=== PATIENT | female | born 1980 | race Caucasian/White ===

== ENCOUNTER 2017-07-04 08:47 | Emergency (ER) | payer BC ==
[2017-07-04 08:55] VITALS: BP 154/91
[2017-07-04] MEDS ORDERED: ACETAMINOPHEN 500 MG TABLET PO ONE (09:15)
[2017-07-04 09:36] LABS: INFLUENZA A PATIENT NEGATIVE (NEGATIVE); INFLUENZA B PATIENT POSITIVE (NEGATIVE)
[2017-07-04] MEDS ORDERED: OSEL75CA PO (10:02)
[2017-07-04] MEDS ORDERED: FLUT12AE IH (10:02)
--- NOTE | 2017-07-04 10:04 | PHYS DOC ---
Past History Past Medical History: No Pertinent History Past Surgical History: No Surgical History Alcohol Use: None Drug Use: None Adult General Chief Complaint Chief Complaint: FLU SYMPTOM HPI HPI Patient is a 36 year old F who presents with flulike symptoms. She describes fever body aches and chills starting yesterday afternoon. She has associated fever and cough. She has no other associated symptoms. She feels that her cough is worse with deep inspiration. She feels that her symptoms are improved with anti-inflammatory medications. She has no other exacerbating or relieving factors. Review of Systems Review of Systems Constitutional: Negative except history of present illness Eyes: Denies change in visual acuity, redness, or eye pain [] HENT: Denies nasal congestion or sore throat [] Respiratory: Negative except history of present illness Cardiovascular: No additional information not addressed in HPI [] GI: Denies abdominal pain, nausea, vomiting, bloody stools or diarrhea [] : Denies dysuria or hematuria [] Musculoskeletal: Denies back pain or joint pain [] Integument: Denies rash or skin lesions [] Neurologic: Denies headache, focal weakness or sensory changes [] Endocrine: Denies polyuria or polydipsia [] All other systems were reviewed and found to be within normal limits, except as documented in this note. Family History Family History No pertinent family medical history was reported Current Medications Current Medications Current Medications Medications (Trade) Dose Ordered Sig/Rody Start Time Stop Time Status Last Admin Dose Admin Acetaminophen (Tylenol) 1,000 mg 1X ONCE 07/04/17 09:15 07/04/17 09:38 DC 07/04/17 09:35 1,000 MG Ondansetron HCl (Zofran Odt) 4 mg 1X ONCE 07/04/17 09:45 07/04/17 09:46 UNV Allergies Allergies Allergies Coded Allergies Type Severity Reaction Last Updated Verified Sulfa (Sulfonamide Antibiotics) Allergy Unknown 07/04/17 Yes Physical Exam Physical Exam Constitutional: Well developed, well nourished, no acute distress, non-toxic appearance. [] Mildly ill-appearing HENT: Normocephalic, atraumatic, Eyes: EOMI, conjunctiva normal, no discharge. [] Neck: Normal range of motion, no tenderness, supple, no stridor. [] Cardiovascular:Heart rate regular rhythm, Lungs & Thorax: Bilateral breath sounds clear to auscultation [] cough noted Abdomen: Bowel sounds normal, soft, no tenderness, no masses, no pulsatile masses. [] Skin: Warm, dry, no erythema, no rash. [] Back: No tenderness, no CVA tenderness. [] Extremities: No tenderness, no cyanosis, no clubbing, ROM intact, no edema. [] Neurologic: Alert and oriented X 3, normal motor function, normal sensory function, no focal deficits noted. [] Psychologic: Affect normal, judgement normal, mood normal. [] Current Patient Data Vital Signs Vital Signs Date Time Temp Pulse Resp B/P (MAP) Pulse Ox O2 Delivery O2 Flow Rate FiO2 07/04/17 08:55 101.1 102 16 99 Room Air Lab Results Laboratory Tests Test 07/04/17 09:03 Influenza Type A (Rapid) Negative (NEGATIVE) Influenza Type B (Rapid) Positive (NEGATIVE) EKG EKG [] Radiology/Procedures Radiology/Procedures [] Course & Med Decision Making Course & Med Decision Making Pertinent Labs and Imaging studies reviewed. (See chart for details) [] Dragon Disclaimer Dragon Disclaimer This electronic medical record was generated, in whole or in part, using a voice recognition dictation system. Departure Departure: Impression: Primary Impression: Influenza B Additional Impression: Bronchitis Disposition: HOME, SELF-CARE Condition: STABLE Referrals: NON,STAFF (PCP) Patient Instructions: Influenza, Adult Additional Instructions: Lissette was seen in the emergency department for flulike symptoms. No emergency medical condition was found on history or physical exam. She was found to have influenza B and symptoms of bronchitis. She was started on Tamiflu and given a prescription for an inhaled steroid. She was advised follow-up with her primary care doctor as needed for further management. Scripts Oseltamivir Phosphate (TAMIFLU) 75 Mg Capsule 1 CAP PO BID for 5 Days, #10 CAP Prov: DANNY CAI MD 07/04/17 Fluticasone Propionate (FLOVENT 110MCG HFA) 12 Gm Aer.w.adap 2 PUFF IH BID for 7 Days, #1 INHALER 2 Refills Prov: DANNY CAI MD 07/04/17 Problem Qualifiers DANNY CAI MD Jul 04, 2017 10:04
[2017-07-04] MEDS ORDERED: OSELTAMIVIR 75 MG CAPSULE PO ONE (10:30)
[2017-07-04] MEDS ORDERED: ONDANSETRON ODT 4 MG TAB.RAPDIS PO ONE (10:30)
[2017-07-04] MEDS ORDERED: HYDROcodon/IBUPROFEN 7.5/200MG 1 TAB TABLET PO ONE (10:30)
== END 2017-07-04 10:15 | disposition home or self-care (01) ==
LOC: ER 08:47
DX: J10.1 Influenza due to other identified influenza virus with other respiratory manifestations (principal); J40 Bronchitis, not specified as acute or chronic; Z88.2 Allergy status to sulfonamides
CPT/HCPCS: 87804; 99284; Q0162

== ENCOUNTER 2021-03-02 01:21 | Observation (INO) | payer BC ==
[~2021-03-02] VITALS: Ht 175.3 cm; Wt 133.8 kg
[~2021-03-02 01:21] MED LIST: FLUT12AE IH; OSEL75CA PO
[2021-03-02] MEDS ORDERED: FAMOTIDINE 20 MG/2 ML VIAL IVP ONE (01:45)
[2021-03-02] MEDS ORDERED: ONDANSETRON PF 4 MG/2 ML VIAL. IVP ONE ×2 (01:45→06:15)
[2021-03-02] MEDS ORDERED: IV NORMAL SALINE 1,000ML 1,000 ML IV ONE ×2 (01:45→05:15)
--- NOTE | 2021-03-02 01:51 | PHYS DOC ---
Past History Past Medical History: No Pertinent History Past Surgical History: No Surgical History Alcohol Use: None Drug Use: None Adult General Chief Complaint Chief Complaint: Bodyache and back pain [facility] HPI Patient presents with complaint of back pain for the last 3 days. She has history of back pain but it has been exacerbated. She has been using Tylenol on and off. She in addition has a body ache and joint pain. She has had cold symptoms and chest congestion for 1 week. She then developed significant mid abdomen pain over the last 24 hours. She has had multiple episodes of vomiting and is still nauseated. She denies any fever or dysuria. Denies any diarrhea. Denies chest pain or shortness of breath. She has not been vaccinated for Covid though see has not had any known exposure. The back pain is located more toward the left flank and feels bit different from her normal back pain. Denies any focal weakness or numbness. Review of Systems Review of Systems Constitutional: Denies fever or chills. Complains of being fatigued. Eyes: Denies change in visual acuity, redness, or eye pain HENT: She has had recent nasal and chest congestion but denies any sore throat. Respiratory: Denies cough or shortness of breath Cardiovascular: No additional information not addressed in HPI GI: Denies abdominal pain, nausea, vomiting, bloody stools or diarrhea : Denies dysuria or hematuria Musculoskeletal: Generally has back pain but now she also complains of joint pain. Integument: Denies rash or skin lesions Neurologic: Denies headache, focal weakness or sensory changes Endocrine: Denies polyuria or polydipsia All other systems were reviewed and found to be within normal limits, except as documented in this note. Current Medications Current Medications Current Medications Medications (Trade) Dose Ordered Sig/Rody Start Time Stop Time Status Last Admin Dose Admin Famotidine (Pepcid Vial) 20 mg 1X ONCE 03/02/21 01:45 03/02/21 01:46 Info (Do NOT chart on this entry -- for MONITORING) 1 each PRN DAILY PRN 03/02/21 02:00 03/04/21 01:59 Iohexol (Omnipaque 300 Mg/ml) 75 ml 1X ONCE 03/02/21 02:00 03/02/21 02:01 UNV Ondansetron HCl (Zofran) 4 mg 1X ONCE 03/02/21 01:45 03/02/21 01:46 Sodium Chloride 1,000 ml @ 1,000 mls/hr 1X ONCE 03/02/21 01:45 03/02/21 02:44 UNV Allergies Allergies Allergies Coded Allergies Type Severity Reaction Last Updated Verified Sulfa (Sulfonamide Antibiotics) Allergy Unknown 07/04/17 Yes Physical Exam Physical Exam Constitutional: Well developed, well nourished, no acute distress, non-toxic appearance. HENT: Normocephalic, atraumatic, bilateral external ears normal, oropharynx moist, no oral exudates, nose normal. Eyes: PERRLA, EOMI, conjunctiva normal, no discharge. Neck: Normal range of motion, no tenderness Cardiovascular:Heart rate regular rhythm, no murmur Lungs & Thorax: Bilateral breath sounds clear to auscultation Abdomen: Bowel sounds normal, soft, with mild to moderate mid abdominal tenderness without any focality to any upper or lower quadrants. She in addition has left flank tenderness. Skin: Warm, dry, no erythema, no rash. Back: No tenderness, no CVA tenderness. Extremities: No tenderness, no cyanosis, no clubbing, ROM intact, no edema. There are no joints with swelling or erythema. Neurologic: Alert and oriented X 3, normal motor function, normal sensory function, no focal deficits noted. Psychologic: Affect normal, judgement normal, mood normal. Current Patient Data Lab Results Laboratory Tests Test 03/02/21 01:53 03/02/21 02:12 03/02/21 02:55 Urine Collection Type Unknown Urine Color Yellow Urine Clarity Clear Urine pH 7.0 Urine Specific [place] 1.025 Urine Protein 30 mg/dl Urine Glucose (UA) Neg mg/dL Urine Ketones (Stick) Neg mg/dL Urine Blood Neg Urine Nitrite Neg Urine Bilirubin Neg Urine Urobilinogen Dipstick 0.2 mg/dL Urine Leukocyte Esterase Neg Urine RBC 0 /HPF Urine WBC 1-4 /HPF Urine Squamous Epithelial Cells Few /LPF Urine Bacteria Few /HPF Bedside Urine HCG, Qualitative hcg negative White Blood Count 5.9 x10^3/uL Red Blood Count 4.45 x10^6/uL Hemoglobin 13.0 g/dL Hematocrit 38.7 % Mean Corpuscular Volume 87 fL Mean Corpuscular Hemoglobin 29 pg Mean Corpuscular Hemoglobin Concent 34 g/dL Red Cell Distribution Width 14.2 % Platelet Count 147 x10^3/uL Neutrophils (%) (Auto) 93 % Lymphocytes (%) (Auto) 4 % Monocytes (%) (Auto) 3 % Eosinophils (%) (Auto) 0 % Basophils (%) (Auto) 0 % Neutrophils # (Auto) 5.5 x10^3uL Lymphocytes # (Auto) 0.2 x10^3/uL Monocytes # (Auto) 0.2 x10^3/uL Eosinophils # (Auto) 0.0 x10^3/uL Basophils # (Auto) 0.0 x10^3/uL Sodium Level 133 mmol/L Potassium Level 3.5 mmol/L Chloride Level 101 mmol/L Carbon Dioxide Level 25 mmol/L Anion Gap 7 Blood Urea Nitrogen 10 mg/dL Creatinine 0.7 mg/dL Estimated GFR (Cockcroft-Gault) 91.8 BUN/Creatinine Ratio 14 Glucose Level 104 mg/dL Calcium Level 7.8 mg/dL Total Bilirubin 0.3 mg/dL Aspartate Amino Transf (AST/SGOT) 25 U/L Alanine Aminotransferase (ALT/SGPT) 41 U/L Alkaline Phosphatase 58 U/L Total Protein 6.7 g/dL Albumin 3.2 g/dL Albumin/Globulin Ratio 0.9 Current Medications Medications (Trade) Dose Ordered Sig/Rody Route PRN Reason Start Time Stop Time Status Last Admin Dose Admin Ondansetron HCl (Zofran) 4 mg 1X ONCE IVP 03/02/21 01:45 03/02/21 01:48 DC 03/02/21 02:21 Famotidine (Pepcid Vial) 20 mg 1X ONCE IVP 03/02/21 01:45 03/02/21 01:48 DC 03/02/21 02:20 Sodium Chloride 1,000 ml @ 1,000 mls/hr 1X ONCE IV 03/02/21 01:45 03/02/21 02:44 DC 03/02/21 02:20 Iohexol (Omnipaque 300 Mg/ml) 75 ml 1X ONCE IV 03/02/21 02:00 03/02/21 02:01 DC 03/02/21 02:34 Info (Do NOT chart on this entry -- for MONITORING) 1 each PRN DAILY PRN MC SEE COMMENTS 03/02/21 02:00 03/04/21 01:59 Morphine Sulfate (Morphine 2mg Syringe) 2 mg 1X ONCE IV 10/15/21 02:30 03/02/21 02:31 DC 03/02/21 02:29 Morphine Sulfate (Morphine 2mg Syringe) 2 mg STK-MED ONCE .ROUTE 03/02/21 02:25 03/02/21 02:26 DC Prochlorperazine Edisylate (Compazine) 10 mg 1X ONCE IV 03/02/21 03:15 03/02/21 03:16 DC 03/02/21 03:21 Prochlorperazine Edisylate (Compazine) 10 mg STK-MED ONCE .ROUTE 03/02/21 03:10 03/02/21 03:11 DC EKG EKG [] Radiology/Procedures Radiology/Procedures Chest x-ray per radiology interpretation showed bibasilar mild ill-defined opacities that can likely be atelectasis or infiltrate including viral pneumonia. CT scan of the abdomen and pelvis impressions were as follow: 1. Patchy bilateral lower lobe opacities, may represent infectious or inflammatory process. Recommend follow-up to ensure resolution. 2. Uterine lesions, most likely fibroids. 3. Mild splenomegaly. Heart Score C/O Chest Pain: No Risk Factors: Risk Factors: DM, Current or recent (<one month) smoker, HTN, HLP, family history of CAD, obesity. Risk Scores: Risk Factors: DM, Current or recent (<one month) smoker, HTN, HLP, family history of CAD, obesity. Course & Med Decision Making Course & Med Decision Making Pertinent Labs and Imaging studies reviewed. (See chart for details) Patient presented with complaint of body ache, nausea, vomiting, abdominal pain and not being able to keep anything down for the last 24 hours. She is IV started and normal saline 1 L bolus has been ordered. In addition Zofran intravenously and Pepcid intravenously has been ordered. She is awaiting CT scan of the abdomen and pelvis as well as chest x-ray and laboratory studies. 3:40 AM: As stated above CT and the chest x-rays only show bibasilar atelectasis versus potential viral infiltrate. Her CBC and comprehensive metabolic profiles are fairly unremarkable. Her urinalysis is also unremarkable. Patient has received 2 dosages of morphine sulfate intravenously and in addition to the Zofran, she has not been given Compazine 10 mg intravenously as well. She is beginning to feel much better and continues remains afebrile and hemodynamically stable with normal blood pressure and pulse as well as pulse oximetry. Due to the generalized body ache and chest congestion, I tested for flu and influenza a and B both were negative. 4:45 AM: I have discussed with patient all of the light laboratory findings, provided patient with Zithromax 500 mg dose in the emergency department for possible atypical pneumonia and prescribed her Zithromax as well as Zofran for home use. Patient is going to call her physician in the morning and then follow-up accordingly. Dragon Disclaimer Dragon Disclaimer This electronic medical record was generated, in whole or in part, using a voice recognition dictation system. Departure Departure: Impression: Primary Impression: Atypical pneumonia Additional Impressions: Person under investigation for COVID-19 Abdominal pain Disposition: HOME / SELF CARE / HOMELESS Condition: IMPROVED Referrals: NAPOLEON ASH MD (PCP) call your doctor in the morning. If you get worse, come back to ER Patient Instructions: Abdominal Pain, Pneumonia, Adult Scripts Ondansetron Hcl (ZOFRAN) 4 Mg Tablet 4 MG PO 2-3XD for nausea, #20 TAB Prov: MARY GRACE GODOY MD 03/02/21 Azithromycin (AZITHROMYCIN TABLET) 250 Mg Tablet 250 MG PO DAILY for ANTI-BIOTIC for 4 Days, #4 TAB 0 Refills Prov: MARY GRACE GODOY MD 03/02/21 Problem Qualifiers MARY GRACE GODOY MD Mar 02, 2021 01:51
[2021-03-02] MEDS ORDERED: IOHEXOL 300 MG/ML 75 ML VIAL. IV ONE (02:00)
[2021-03-02] MEDS ORDERED: CONTRAST GIVEN. MC PRN (02:00)
[2021-03-02] MEDS ORDERED: MORPHINE SULFATE 2 MG/ML DISP.SYRIN. ONE (02:25)
[2021-03-02] MEDS ORDERED: MORPHINE SULFATE 2 MG/ML DISP.SYRIN. IV ONE ×2 (02:30→06:15)
--- NOTE | 2021-03-02 02:54 | RAD ---
XR CHEST 2V History: Reason: chest congestion / Spl. Instructions: / History: Comparison: None. Findings: Mild ill-defined bibasilar opacities. No pleural effusion. No pneumothorax. Normal heart size. Impression: 1. Mild ill-defined bibasilar opacities, may represent atelectasis or infiltrates including viral pn eumonia. Electronically signed by: Jostin Michelle DO (03/02/2021 2:52 AM) [facility]
--- NOTE | 2021-03-02 03:01 | RAD ---
CT ABDOMEN+PELVIS W History: Reason: mid abd and left flank pain Omni 300 75cc / Spl. Instructions: / History: Technique: After the administration of intravenous contrast, CT imaging was performed of the abdomen and pelvis. Multiplanar images are reviewed. Exposure: One or more of the following individualized dose reduction techniques were utilized for thi s examination: 1. Automated exposure control 2. Adjustment of the mA and/or kV according to patient size 3. Use of iterative reconstruction technique. Comparison: None Findings: Lower chest: Mild bilateral lower lobe patchy opacities. No pleural effusion. Abdomen and pelvis: Hepatic steatosis. The spleen is mildly enlarged measures 13.7 cm. The adrenal gl ands, pancreas and gallbladder are unremarkable. No biliary ductal dilatation. No renal calculus. No hydronephrosis. No ureteral or urinary bladder calculus. Decompressed urinary b ladder. Normal appendix. No evidence of bowel obstruction. No pathologic lymphadenopathy. Rounded lesions wit hin the uterus measures 3.1 cm, 2.8 cm and 2.9 cm. Dominant left ovarian follicle measures 2.4 cm. No ascites. Bones: No pathologic osseous lesions. Impression: 1. Patchy bilateral lower lobe opacities, may represent infectious or inflammatory process. Recommen d follow-up to ensure resolution. 2. Uterine lesions, most likely fibroids. 3. Mild splenomegaly. Electronically signed by: Jostin Michelle DO (03/02/2021 2:58 AM) [facility]
[2021-03-02] MEDS ORDERED: PROCHLORPERAZINE 10 MG/2 ML VIAL. ONE (03:10)
[2021-03-02 03:13] LABS: BASO % 0 % (0-3); EOS % 0 % (0-3); HEMATOCRIT 38.7 % (36.0-47.0); LYMPH # 0.2 x10^3/uL (1.0-4.8); LYMPH % 4 % (24-48); MEAN CORPUSCULAR HEMOGLOBIN 29 pg (25-35); MEAN CORPUSCULAR HGB CONC 34 g/dL (31-37); MEAN CORPUSCULAR VOLUME 87 fL (79-100); MONO # 0.2 x10^3/uL (0.0-1.1); MONO % 3 % (0-9); NEUT # 5.5 x10^3uL (1.8-7.7); NEUT % 93 % (31-73); PLATELET COUNT 147 x10^3/uL (140-400); RED BLOOD COUNT 4.45 x10^6/uL (3.50-5.40); RED CELL DISTRIBUTION WIDTH 14.2 % (11.5-14.5); WHITE BLOOD COUNT 5.9 x10^3/uL (4.0-11.0)
[2021-03-02] MEDS ORDERED: PROCHLORPERAZINE 10 MG/2 ML VIAL. IV ONE (03:15)
[2021-03-02 03:20] LABS: CALCIUM 7.8 mg/dL (8.5-10.1); CREATININE 0.7 mg/dL (0.6-1.0); GFR 91.8; POTASSIUM 3.5 mmol/L (3.5-5.1)
[2021-03-02 03:22] LABS: BACTERIA,URINE FEW /HPF (0-FEW); BILIRUBIN,URINE NEG (NEG); CLARITY,URINE CLEAR; COLOR,URINE YELLOW; GLUCOSE,URINE NEG (NEG); NITRITE,URINE NEG (NEG); RBC,URINE 0 /HPF (0-2); SQUAMOUS EPITHELIAL CELL,UR FEW /LPF; UROBILINOGEN,URINE 0.2 mg/dL (0.2 mg/dL)
[2021-03-02 03:26] LABS: ALBUMIN 3.2 g/dL (3.4-5.0); ALBUMIN/GLOBULIN RATIO 0.9 (1.0-1.7); TOTAL BILIRUBIN 0.3 mg/dL (0.2-1.0); TOTAL PROTEIN 6.7 g/dL (6.4-8.2)
[2021-03-02] MEDS ORDERED: AZITHROMYCIN 250 MG TABLET. PO ONE (04:00)
[2021-03-02 04:46] LABS: INFLUENZA A PATIENT NEGATIVE (NEGATIVE); INFLUENZA B PATIENT NEGATIVE (NEGATIVE)
[2021-03-02] MEDS ORDERED: AZIT250T6 PO (04:51)
[2021-03-02] MEDS ORDERED: ONDA4TAB7 PO (04:51)
[2021-03-02] MEDS ORDERED: methylPREDNISolone SOD SUCC PF 125 MG/2 ML VIAL. IV ONE (05:15)
[2021-03-02] MEDS ORDERED: ACETAMINOPHEN 500 MG TABLET PO ONE (05:15)
[2021-03-02 05:41] LABS: BARBITURATES NEG (NEG); BENZODIAZEPINES NEG (NEG); CANNABINOIDS NEG (NEG); COCAINE NEG (NEG); METHADONE NEG (NEG); OPIATES NEG (NEG); PHENCYCLIDINE NEG (NEG)
[2021-03-02] MEDS ORDERED: cefTRIAXone SODIUM 1 GM VIAL ONE (05:45)
[2021-03-02] MEDS ORDERED: IV NORMAL SALINE 50ML 50 ML ONE (05:45)
[2021-03-02 05:48] LABS: AMPHETAMINE/METHAMPHETAMINE NEG (NEG)
[2021-03-02 10:15] VITALS: BP 137/90
--- NOTE | 2021-03-02 10:15 | NUR ---
Lissette Forbes 39F admitted to ICU bed 6, ICU status, Dr. Bridges service. Pt has positive covid rapid antigen, generalized body pain, nausea, vomiting. Admission assessment completed, pt connected to monitors. Pt states that she is feeling better and would like to go home. Dr. Bridges is on unit to see pt. Pt received and reviewed written hospital/unit protocols and policies.
--- NOTE | 2021-03-02 12:19 | HP ---
ADMIT DATE: 03/02/2021 ATTENDING PHYSICIAN: Dr. Bridges. CHIEF COMPLAINT: Back pain and body ache. HISTORY OF PRESENT ILLNESS: The patient is a 40-year-old female, admitted through the ED with a 2-day history of myalgias, body aches, not feeling well. She had some episodes of vomiting, still nauseated, and she was worked up. She has diffuse infiltrate, very mild in nature on the chest x-ray and a coronavirus swab was positive. Her has been diagnosed with recent flu symptoms. She was given 2 liters of fluids and admitted for further treatment and evaluation. PAST MEDICAL HISTORY: Significant for , tubal ligation. She is otherwise healthy. MEDICATION: She takes Paxil. ALLERGIES: SHE HAS ALLERGIES TO SULFA DRUGS AND NITROFURANTOIN. SOCIAL HISTORY: She is a nonsmoker and nondrinker. She is and she works pre k teacher. FAMILY HISTORY: Noncontributory. REVIEW OF SYSTEMS: Significant for the viral syndrome in the last 2 days, low-grade fevers up to 100 degrees Fahrenheit. She has not had her vaccination. All other systems reviewed and turned to be negative. PHYSICAL EXAMINATION: GENERAL: When I saw her, this is alert, pleasant female. VITAL SIGNS: Initial vital signs showed blood pressure of 126/73, pulse was 100 and regular, oxygen saturation 96% on room air. She is afebrile. HEENT: Head is without trauma. Pupils are reactive. Sclerae nonicteric. Oropharynx clear. NECK: Supple. No bruits. LUNGS: Showed coarse rhonchi in the bases. CARDIOVASCULAR: Showed regular heart tones. No gallop. ABDOMEN: Soft. EXTREMITIES: Showed trace edema. NEUROLOGIC: Focally intact. SKIN: Warm and dry. IMAGING STUDIES: Chest x-ray as noted. LABORATORY DATA: Hemoglobin 13.0 g/dL, white count 5900. Electrolytes within normal range. Toxicology screen was unremarkable. Serology positive for coronavirus. Influenza A and B were negative. ASSESSMENT: 1. A 40-year-old female with acute viremia due to coronavirus. 2. Mild viral pneumonia on chest x-ray. 3. Myalgias. 4. Dehydration. PLAN: 1. She was admitted to observation status. 2. IV hydration. 3. Pain and nausea control. 4. Supplemental oxygen as needed. JACKIE/ELIO CLAIRE: JACKIE/latasha TID: [id number]
[2021-03-02] MEDS ORDERED: DEXA4TAB63 PO (13:05)
--- NOTE | 2021-03-02 13:25 | NUR ---
pt ready for discharge, IV dc'd without complication. Reviewed discharge instructions and written script given to pt for decadron. pt ambulated to pov upon discharge.
--- NOTE | 2021-03-02 14:11 | DS ---
DATE OF DISCHARGE: 03/02/2021 ATTENDING PHYSICIAN: Dr. Bridges. FINAL DISCHARGE DIAGNOSES: 1. Mild atypical pneumonia. 2. Coronavirus infection. 3. Myalgia, improved. 4. Dehydration, rehydrated. HISTORY AND PHYSICAL: The patient is a 40-year-old female, otherwise healthy, her has been ill. She had flu-like symptoms, myalgia, body ache, low-grade fever. She did test positive for coronavirus. She was given IV hydration along with pain control, nausea control with marked improvement. She was admitted for observation. PHYSICAL EXAMINATION: Please see my dictated note. PERTINENT LABORATORY AND X-RAY STUDIES: On the database, normal CBC, chemistry panel. Chest x-ray, very mild infiltrates in the bases. Her rapid coronavirus was indeed positive. COURSE IN THE HOSPITAL: When I got to see her, she came up here, she was doing well. Her oxygen saturations were 96% on room air. She felt better. No other symptoms. She wanted to go home. I felt this is reasonable. I did recommend a short course of Decadron 4 mg 2 p.o. b.i.d. She will continue her Flovent nasal spray, oral intake of Gatorade and she will monitor for signs of hypoxemia. She is very alert and oriented and she understands what to do. She was discharged then from the hospital in stable condition with explicit drug and followup care with her PCP. She will undergo a quarantine for at least 7-10 days. Her has been ill too. MELIZA CLAIRE: Alber TID: [id number]
== END 2021-03-02 13:25 | disposition home or self-care (01) ==
LOC: ER 01:21 → INTOOBSV 05:21 → ICU 05:21
PROVIDERS: ADMIT Hospitalist; ATTEND Hospitalist
DX: U07.1 COVID-19 (principal); J12.82 Pneumonia due to coronavirus disease 2019; E86.0 Dehydration; M79.10 Myalgia, unspecified site; M54.9 Dorsalgia, unspecified; R10.9 Unspecified abdominal pain; Z98.891 History of uterine scar from previous surgery; Z98.51 Tubal ligation status; Z79.899 Other long term (current) drug therapy
CPT/HCPCS: 36415; 71046; 74177; 80053; 80307; 81001; 81025; 83605; 85025; 87040; 87426; 87804; 96361; 96365; 96375; 96376; 99285; G0378; J0696; J0780; J2270; J2405; J2930; J3490; J7030; Q9967; G0379